=== PATIENT | male | born 1960 | race Caucasian/White ===

== ENCOUNTER 2023-10-25 05:40 | Day surgery (SDC) | payer OTHER ==
[~2023-10-25] VITALS: Ht 177.8 cm; Wt 101.0 kg
[2023-10-25] VITALS (18 sets, daily range): BP systolic 89–137; BP diastolic 56–96
[~2023-10-25 05:40] MED LIST: Lisinopril10 MG PO; TAMS.4ER PO
--- NOTE | 2023-10-25 07:28 | NUR ---
Patient up to Ambulate independently. Gait steady. Surgical site prepped with 2% Chlorhexidine cloth wipe. History, Chart, Medications and Allergies reviewed before start of procedure. Lungs clear T/O to Auscultation. Patient confirms NPO status and agrees with scheduled surgery. Pre-Op teaching done. Pt verbalizes understanding. BELONGINGS PLACED UNDER PT'S BED.
--- NOTE | 2023-10-25 08:12 | NUR ---
10/25/23 0812 Katherine Cruz SPINAL NERVE BLOCK COMPLETED BY DR. GÓMEZ UPON ENTRY TO OR. PT TOLERATED WELL.
--- NOTE | 2023-10-25 14:06 | NUR ---
PT ARRIVED TO THE ROOM FROM PACU AT APPROXIMATELY 1011. PT ALERT AND ORIENTED. PAIN MANAGED AT TIME OF ARRIVAL TO THE ROOM. SPINAL ANESTHESIA STILL IN EFFECT. PT EDUCATED TO USE CALL LIGHT AND INCENTIVE SPIROMETER. FIRE SAFETY INFORMATION PROVIDED AND PT DENIED HAVING IGNITION SOURCES.
--- NOTE | 2023-10-25 18:33 | NUR ---
SHIFT SUMMARY PT IS POD#0 FROM R TKA WITH DR. FUENTES. PAIN MANAGED WITH PO PAIN MEDICATION. PT HAS WORKED WITH THERAPY, HE IS TOLERATING PO AND HAS BEEN ABLE TO VOID. PT EDUCATED NOT TO GET OOB WITHOUT ASSISTANCE FROM STAFF.
[2023-10-26 00:10] VITALS: BP 128/91
--- NOTE | 2023-10-26 04:40 | NUR ---
SHIFT SUMMARY POD 1 R TKA PT RESTED T/O NIGHT. PAIN MANAGED PER EMAR. TOLERATING PO INTKAE, VOIDING. 1 PERS ASST WITH WALKER AND GAIT BELT. AQUACEL TO R KNEE C/D/I. VSS. DENIES N/T. NO OTHER CONCERNS AT THIS TIME. CALL LIGHT WITHIN REACH
[2023-10-26 05:01] VITALS: BP 115/84
[2023-10-26 05:42] LABS: BASOPHILS ABSOLUTE AUTO 0.03 K/mm3 (0.00-0.23); BASOPHILS PERCENT AUTO 0 % (0-2); EOSINOPHILS ABSOLUTE AUTO 0.24 K/mm3 (0.00-0.68); EOSINOPHILS PERCENT AUTO 3 % (0-6); Hematocrit 37.7 % (37.0-53.0); Hemoglobin 12.6 g/dL (13.5-17.5); IMMATURE GRAN ABSOLUTE AUTO 0.01 K/mm3 (0.00-0.10); IMMATURE GRAN PERCENT AUTO 0 % (0-1); LYMPHOCYTES ABSOLUTE AUTO 1.57 K/mm3 (0.84-5.20); LYMPHOCYTES PERCENT AUTO 21 % (21-46); MONOCYTES ABSOLUTE AUTO 1.03 K/mm3 (0.16-1.47); MONOCYTES PERCENT AUTO 14 % (4-13); Mean Corpuscular HGB 33.2 pg (26.0-34.0); Mean Corpuscular HGB Conc 33.4 g/dL (31.5-36.5); Mean Corpuscular Volume 99 fL (80-100); Mean Platelet Volume 9.3 fL (9.1-12.4); NEUTROPHILS ABSOLUTE AUTO 4.45 K/mm3 (1.96-9.15); NEUTROPHILS PERCENT AUTO 61 % (41-73); Platelet Count 173 K/mm3 (150-400); RDW Coefficient Variation 12.7 % (11.7-14.2); White Blood Cell Count 7.33 K/mm3 (4.00-11.30)
[2023-10-26 07:08] LABS: Bun/Creatinine Ratio 16.8 (12.0-20.0); Calcium, Blood 8.7 mg/dL (8.5-10.1); Creatinine, Blood 1.01 mg/dL (0.60-1.20); Magnesium, Blood 2.3 mg/dL (1.6-2.4); Potassium, Blood 4.3 mmol/L (3.5-5.5)
[2023-10-26 07:22] VITALS: BP 131/95
--- NOTE | 2023-10-26 12:38 | NUR ---
DISCHARGE SUMMARY POD1 R TKA, A/OX4, VSS, TOLERATING PO, PAIN WELL MANAGED, AMBULATING WELL, VOIDING INDEPENDENTLY, AQUACELL TO R KNEE C/D/I, POLAR PACK IN PLACE WHEN NOT AMBULATING. PT HAD DISCHARGE INFORMATION DISCUSSED WITH HIM INCLUDING HOME CARE, MEDICATIONS, AND FOLLOW UP APPOINTMENTS. IV ACCESS REMOVED PRIOR TO DC, ESCORTED OTU VIA WC TO PRIVATE AUTO TO GO HOME.
== END 2023-10-26 12:50 | disposition home or self-care (01) ==
LOC: ORSCMMR 05:40 → ORD 07:30 → SURS 10:10 → ORSCMMR 10-26 12:50
PROVIDERS: Orthopaedic Surgery
PROC: 0SRC0JA Replacement of Right Knee Joint with Synthetic Substitute, Uncemented, Open Approach (ICD-10-PCS; principal; 2023-10-25 07:30)
DX: M17.11 Unilateral primary osteoarthritis, right knee (principal); I10 Essential (primary) hypertension; Z87.891 Personal history of nicotine dependence; Z79.899 Other long term (current) drug therapy
CPT/HCPCS: 36415; 73560-RT; 80048; 83735; 85025; 97110; 97116; 97162; 97530; A9270; C1713; C1776; J0171; J0690; J0735; J1885; J2250; J2371; J2704; J2795; J7120

== ENCOUNTER 2024-12-02 08:55 | Day surgery (SDC) | payer OTHER ==
[~2024-12-02] VITALS: Ht 177.8 cm; Wt 101.7 kg
[~2024-12-02 08:55] MED LIST changes: +ATOR40TA PO; +propofoL 0 ML IV ONE
[2024-12-02] MEDS ORDERED: TESTOSTERONE (09:19)
[2024-12-02] MEDS ORDERED: Lactated Ringer's 1,000 ML IV ONE (09:32)
[2024-12-02] MEDS ORDERED: Acetaminophen 500 MG Tab ONE (10:00)
--- NOTE | 2024-12-02 10:09 | NUR ---
12/02/24 Naye Campbell PT RECEIVED 1,000MG OF APAP IN PRE-OP PER DR. RANGEL'S VERBAL ORDER. PT PLEASANT, AND COOPERATIVE. DR. FUENTES AND DR. RANGEL SPOKE TO PT PRIOR TO SURGERY. ALL QUESTIONS ANSWERED AND CONCERNS ADDRESSED.
[2024-12-02] MEDS ORDERED: Dexamethasone Sod Phos 10 MG/ML 1ML VIAL ONE (10:11)
[2024-12-02] MEDS ORDERED: Ketorolac Tromethamine 30mg Vial ONE (10:11)
[2024-12-02] MEDS ORDERED: HYDROmorphone HCl/Pf 1MG SYR ONE (10:11)
[2024-12-02] MEDS ORDERED: Ondansetron HCl 2 MG / ML 2ML Vial ONE (10:11)
[2024-12-02 10:32] VITALS: BP 131/89
== END 2024-12-02 10:58 | disposition home or self-care (01) ==
LOC: ORSCSDS 08:55
PROVIDERS: Orthopaedic Surgery
PROC: 0SSCXZZ Reposition Right Knee Joint, External Approach (ICD-10-PCS; principal; 2024-12-02 10:35)
DX: M17.11 Unilateral primary osteoarthritis, right knee (principal); Z96.651 Presence of right artificial knee joint; M25.661 Stiffness of right knee, not elsewhere classified; E78.5 Hyperlipidemia, unspecified; I10 Essential (primary) hypertension; E66.9 Obesity, unspecified; Z68.32 Body mass index [BMI] 32.0-32.9, adult; Z79.899 Other long term (current) drug therapy
CPT/HCPCS: A9270; J1100; J1171; J1885; J2405; J2704

== ENCOUNTER 2025-06-09 06:19 | Day surgery (SDC) | payer OTHER ==
[2025-05-19 09:16] VITALS: BP 121/85
[~2025-06-09] VITALS: Ht 177.8 cm; Wt 101.1 kg
[2025-06-09] VITALS (16 sets, daily range): BP systolic 89–130; BP diastolic 56–84
[~2025-06-09 06:19] MED LIST changes: +ATOR20 PO; -ATOR40TA PO; +CeFAZolin Sodium 2,000 MG in NS 100 ML IV SCH; +Chlorhexidine Mouth Care 15 ML UDC MT SCH; +Ropivacaine 0.5% HCl/Pf 123.125 MG,EPINEPHrine HCL 0.25 MG,Ketorolac Tromethamine 15 MG... INFIL SCH; +TESTOSTERONE200 MG IL; +Tranexamic Acid 100 ML IV SCH; -propofoL 0 ML IV ONE
[2025-06-09] MEDS ORDERED: HYDROmorphone HCl/Pf 1MG SYR IV PRN ×3 (07:00→09:00)
[2025-06-09] MEDS ORDERED: Ondansetron HCl 2 MG / ML 2ML Vial IV PRN ×2 (07:05→09:00)
[2025-06-09] MEDS ORDERED: Magnesium Hydroxide Conc 10 ML UDC PO PRN (07:05)
[2025-06-09] MEDS ORDERED: Metoclopramide HCl 5MG / ML 2ML Vial IV PRN (07:05)
[2025-06-09] MEDS ORDERED: FentaNYL Citrate 50 MCG/ML 2 ML Injection ONE (07:08)
[2025-06-09] MEDS ORDERED: Midazolam HCl 1MG / ML 2ML Vial ONE (07:08)
--- NOTE | 2025-06-09 07:29 | NUR ---
PRE OP NOTE PT A&OX4, BREATING RA, CHATTING C STAFF, CALM. Ambulatory in Day Surgery Patient confirms NPO status and agrees with scheduled surgery. Pre-Op teaching done. Pt verbalizes understanding. Patient States Post-Procedure ride home has been arranged.
[2025-06-09] MEDS ORDERED: Dexamethasone Sod Phos 10 MG/ML 1ML VIAL ONE (08:24)
[2025-06-09] MEDS ORDERED: Ondansetron HCl 2 MG / ML 2ML Vial ONE (08:24)
[2025-06-09] MEDS ORDERED: FentaNYL Citrate 50 MCG/ML 2 ML Injection IV PRN ×2 (09:00)
[2025-06-09] MEDS ORDERED: HYDROmorphone HCl/Pf 1MG SYR ONE (10:13)
--- NOTE | 2025-06-09 10:31 | NUR ---
06/09/25 1031 Dano,Chayo SECOND UNACOUNTED FOR SUTURE FOUND IN 3-0 MONOCRYL PACKAGE WHEN SCRUB REMOVED FIRST NEEDLE FROM PACKAGE. ADDITIONAL NEEDLE RESULTED IN INCORRECT COUNT. INTRAOPERATIVE X-RAY TAKEN TO CONFIRM NO RETAINED FOREIGN OBJECTS. X-RAY NOTED CLEAR PER RADIOLOGIST, .
[2025-06-09] MEDS ORDERED: Ketorolac Tromethamine 15mg Vial IV SCH (12:00)
[2025-06-09] MEDS ORDERED: CeFAZolin Sodium 2,000 MG in NS 100 ML IV SCH (15:45)
--- NOTE | 2025-06-09 17:30 | NUR ---
SHIFT SUMMARY AOX4, POD0 TKA. DRESSING IS C/D/I. WORKS WITH PT, UP IN CHAIR. 1 ASSIST. USES CALL LIGHT, VSS. AWAITING FOR FIRST VOID. PLAN TO STAY OVERNIGHT AND WORK WITH PT IN THE AM.
--- NOTE | 2025-06-09 20:57 | NUR ---
UPDATE POD 0 S/P RIGHT TKA. DRESSING AND WRAP TO KNEE CDI, POLAR PACK IN PLACE. PT A/OX4. PAIN MANAGED PER EMAR. RENATA PO DIET. IS VOIDING. WORKED WITH THERAPY DURING DAY SHIFT, UP TO CHAIR AND WALKING IN HALLS WITH SBA, FWW, GB. IV PATENT AND SL. DENIES NEEDS AT THIS TIME. HAS CALL LIGHT. BESIDE REPORT GIVEN TO SOLO FREEMAN.
--- NOTE | 2025-06-10 01:23 | NUR ---
ASSUMPTION OF PRIMARY NURSING CARE AT APPROX 202906/09/2025. BEDSIDE REPORT RECEIVED FROM EMMANUEL CARLSON RN. PT A/OX4. DRESSING TO LEFT KNEE C/D/I. POLAR PACK AND SCDS ON. CALL LIGHT IN REACH.
--- NOTE | 2025-06-10 04:22 | NUR ---
SHIFT SUMMARY NOC. PT POD 1 LEFT TOTAL KNEE. DRESSING IS C/D/I WITH POLAR PACK IN PLACE. PT A/O X4. PT VOIDING URINE, MEDICATED PER EMAR FOR PAIN. VSS. MAKES NEEDS KNOWN, CALL LIGHT IN REACH.
[2025-06-10 05:04] VITALS: BP 121/78
[2025-06-10 06:10] LABS: BASOPHILS ABSOLUTE AUTO 0.02 K/mm3 (0.00-0.23); BASOPHILS PERCENT AUTO 0 % (0-2); EOSINOPHILS ABSOLUTE AUTO 0.05 K/mm3 (0.00-0.68); EOSINOPHILS PERCENT AUTO 0 % (0-6); Hematocrit 36.4 % (37.0-53.0); Hemoglobin 12.6 g/dL (13.5-17.5); IMMATURE GRAN ABSOLUTE AUTO 0.06 K/mm3 (0.00-0.10); IMMATURE GRAN PERCENT AUTO 1 % (0-1); LYMPHOCYTES ABSOLUTE AUTO 1.74 K/mm3 (0.84-5.20); LYMPHOCYTES PERCENT AUTO 15 % (21-46); MONOCYTES ABSOLUTE AUTO 1.27 K/mm3 (0.16-1.47); MONOCYTES PERCENT AUTO 11 % (4-13); Mean Corpuscular HGB Conc 34.6 g/dL (31.5-36.5); Mean Corpuscular Volume 96 fL (80-100); NEUTROPHILS ABSOLUTE AUTO 8.63 K/mm3 (1.96-9.15); NEUTROPHILS PERCENT AUTO 73 % (41-73); NRBC ABSOLUTE 0.00 K/mm3 (0.00-0.02); NRBC Auto 0.0 /100 WBC (0.0-0.2); Platelet Count 238 K/mm3 (150-400); RDW Coefficient Variation 13.0 % (11.7-14.2); RDW Standard Deviation 46.0 fL (35.1-46.3)
[2025-06-10 06:29] LABS: Anion Gap 8.0 mmol/L (3-11); Blood Urea Nitrogen 17.0 mg/dL (8-24); CO2, Blood 26.0 mmol/L (21-32); Calcium, Blood 8.2 mg/dL (8.5-10.1); Chloride, Blood 108.0 mmol/L (98-108); Creatinine, Blood 0.79 mg/dL (0.60-1.20); Glucose, Blood 99.0 mg/dL (70-99); Magnesium, Blood 2.2 mg/dL (1.6-2.4); Potassium, Blood 3.9 mmol/L (3.5-5.5); Sodium, Blood 138.0 mmol/L (136-145)
[2025-06-10] MEDS ORDERED: ACET500 PO (07:44)
[2025-06-10] MEDS ORDERED: OXAYDO5 M1 PO (07:45)
[2025-06-10] MEDS ORDERED: XARELTO20 MG PO (07:46)
[2025-06-10] MEDS ORDERED: SULTRIDS PO (07:47)
[2025-06-10] MEDS ORDERED: ONDA4ODT MM (07:47)
[2025-06-10] MEDS ORDERED: Trimethoprim/Sulfamethoxazole DS Tab PO SCH (09:00)
[2025-06-10 09:01] VITALS: BP 136/79
--- NOTE | 2025-06-10 09:33 | NUR ---
ASSUMED CARE OF PT @0700. AXO4. VSS. TOLERATING PO INTAKE WELL. PHYSICAL THERAPY OK'D PT FOR DC. PAIN MEDS PER EMAR ADMINISTERED. PT STATES HE HAS ALREADY MANAGER STAFFING PRESCRIPTIONS FOR HOME AND STATES HIS SATISFACTION WITH HIS L KNEE SURGERY. SPOUSE TO PICK PT UP AROUND 1000 POST DC INSTRUCTIONS.
--- NOTE | 2025-06-10 11:33 | NUR ---
DC INSTRUCTIONS PROVIDED TO PT AND SPOUSE. BELONINGS WITH PT INCLUDING COLD PACK. VSS. AMBULATNG WELL. WHEELED OUT WITH SPOUSE TO CAR @1125.
== END 2025-06-10 10:28 | disposition home or self-care (01) ==
LOC: ORSCMMR 06:19 → ORD 07:30 → ORSCMMR 07:30 → SURS 11:04 → ORSCMMR 06-10 10:28
PROVIDERS: Orthopaedic Surgery
PROC: 0SRD0JA Replacement of Left Knee Joint with Synthetic Substitute, Uncemented, Open Approach (ICD-10-PCS; principal; 2025-06-09 07:30)
DX: M17.12 Unilateral primary osteoarthritis, left knee (principal); I10 Essential (primary) hypertension; E78.00 Pure hypercholesterolemia, unspecified; Z96.651 Presence of right artificial knee joint; Z79.899 Other long term (current) drug therapy; Z87.891 Personal history of nicotine dependence; Z85.828 Personal history of other malignant neoplasm of skin
CPT/HCPCS: 36415; 73560-LT; 80048; 83735; 85025; 97110; 97116; 97162; 97530; A9270; C1713; C1776; J0165; J0690; J0735; J1100; J1171; J1885; J2250; J2405; J2704; J2795; J3010; J3373; J7050; J7120